=== PATIENT | male | born 1985 | race Caucasian/White ===

== ENCOUNTER 2020-02-15 15:15 | Inpatient (IN) | payer OTHER ==
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
--- NOTE | 2020-02-15 16:58 | HP ---
CIWA Score Nausea/Vomitin Muscle Tremors: 3 Anxiety: 3 Agitation: 2 Paroxysmal Sweats: No Perspiration Orientation: 0-Oriented Tacttile Disturbances: 0-None Auditory Disturbances: 1-Very Mild Visual Disturbances: 1-Very Mild Sensitivity Headache: 1-Very Mild CIWA-Ar Total Score: 13 - Admission Criteria OASAS Guidelines: Admission for Medically Managed Detox: Requires at least one of the followin. CIWA greater than 12 2. Seizures within the past 24 hours 3. Delirium tremens within the past 24 hours 4. Hallucinations within the past 24 hours 5. Acute intervention needed for co occurring medical disorder 6. Acute intervention needed for co occurring psychiatric disorder 7. Severe withdrawal that cannot be handled at a lower level of care (continued vomiting, continued diarrhea, abnormal vital signs) requiring intravenous medication and/or fluids 8. Patient presents the following: CIWA greater than 12 Admission Criteria Met: Admission criteria met Admitting History and Physical - Smoking History Smoking history: Current every day smoker Have you smoked in the past 12 months: Yes Aproximately how many cigarettes per day: 20 - Alcohol/Substance Use Hx Alcohol Use: Yes Admission ROS BHS - HPI Chief Complaint: detox from alcohol and benzo. Is in a methadone program 130mg/day Allergies/Adverse Reactions: Allergies Allergy/AdvReac Type Severity Reaction Status Date / Time No Known Allergies Allergy Verified 03/29/15 14:17 History of Present Illness: 34 yo started using percocets and xanax at age 14. Has been in a methadone program for the last 8 months, but still injecting heroin occ, also injecting cocaine (speedball), wants to stop. HCV pos- has not had treatment diagnosed with anxiety Does not have a PCP [facility]- MTD, BZO - Substance Use History Alcohol Substance amount: one pint Vodka Frequency of use: Daily Substance route: Oral Date of Last Use: 02/12/20 Heroin Substance amount: 2-3 bags Frequency of use: Less than 3 times per week Substance route: Injection (ex: intravenous or skin popping) Date of Last Use: 02/11/20 Cocaine- Powder Substance amount: $100 Frequency of use: Less than 3 times per week Substance route: Injection (ex: intravenous or skin popping) Date of Last Use: 02/11/20 Xanax Substance amount: Klonopin or Xanax 4-6 mg Frequency of use: Daily Substance route: Oral Date of Last Use: 02/12/20 Exam Limitations: No Limitations - Ebola screening Have you traveled outside of the country in the last 21 days: No Have you had contact with anyone from an Ebola affected area: No Have you been sick,other than usual withdrawal symptoms: No Do you have a fever: No - Review of Systems Constitutional: No Symptoms Reported EENT: reports: No Symptoms Reported Respiratory: reports: No Symptoms reported Cardiac: reports: No Symptoms Reported GI: reports: No Symptoms Reported : reports: No Symptoms Reported Musculoskeletal: reports: No Symptoms Reported Integumentary: reports: No Symptoms Reported Neuro: reports: Headache (almost daily headaches- using klonopin which helps with h/a) Endocrine: reports: No Symptoms Reported Hematology: reports: No Symptoms Reported Psychiatric: reports: other Patient History - Patient Medical History Hx Anemia: No Hx Asthma: Yes (albuterol) Hx Chronic Obstructive Pulmonary Disease (COPD): No Hx Cancer: No Hx Cardiac Disorders: No Hx Congestive Heart Failure: No Hx Hypertension: No Hx Hypercholesterolemia: No Hx Pacemaker: No HX Cerebrovascular Accident: No Hx Seizures: No Hx Dementia: No Hx Diabetes: No Hx Gastrointestinal Disorders: Yes (GERD) Hx Liver Disease: No Hx Genitourinary Disorders: No Hx Sexually Transmitted Disorders: No Hx Renal Disease (ESRD): No Hx Thyroid Disease: No Hx Human Immunodeficiency Virus (HIV): No (negative) Hx Hepatitis C: No Hx Depression: Yes Hx Suicide Attempt: No (denies) Hx Bipolar Disorder: No Hx Schizophrenia: No - Patient Surgical History Past Surgical History: Yes Hx Neurologic Surgery: No Hx Cataract Extraction: No Hx Cardiac Surgery: No Hx Lung Surgery: No Hx Breast Surgery: No Hx Breast Biopsy: No Hx Abdominal Surgery: No Hx Appendectomy: No Hx Cholecystectomy: No Hx Genitourinary Surgery: No Hx Section: No Hx Orthopedic Surgery: No Other Surgical History: tonsillectomy Anesthesia Reaction: No - PPD History Date: 03/31/15 Results: 0 mm - Smoking Cessation Smoking history: Current every day smoker Have you smoked in the past 12 months: Yes Aproximately how many cigarettes per day: 20 Cigars Per Day: 20 Hx Chewing Tobacco Use: No Initiated information on smoking cessation: Yes 'Breaking Loose' booklet given: 02/15/20 Admission Physical Exam BHS - Physical General Appearance: Yes: Within Normal Limits HEENTM: Yes: Within Normal Limits, Hearing grossly Normal Respiratory: Yes: Within Normal Limits, Chest Non-Tender, Lungs Clear Neck: Yes: Within Normal Limits Cardiology: Yes: Within Normal Limits, Regular Rhythm, Regular Rate Abdominal: Yes: Within Normal Limits Back: Yes: Within Normal Limits Musculoskeletal: Yes: Within Normal Limits Extremities: Yes: Within Normal Limits, Normal Inspection, Other Neurological: Yes: Within Normal Limits, physical therapist II-XII NML intact Integumentary: Yes: Within Normal Limits Lymphatic: Yes: Within Normal Limits - Diagnostic (1) Opioid dependence on agonist therapy Current Visit: Yes Status: Acute (2) Cocaine use disorder Current Visit: Yes Status: Acute (3) Benzodiazepine dependence Current Visit: No Status: Acute (4) Drug-induced mood disorder Current Visit: No Status: Chronic (5) Hepatitis C Current Visit: No Status: Chronic Qualifiers: Viral hepatitis chronicity: chronic Hepatic coma status: without hepatic coma Qualified Code(s): B18.2 - Chronic viral hepatitis C (6) Opioid dependence Current Visit: No Status: Chronic (7) Alcohol dependence with uncomplicated withdrawal Current Visit: No Status: Acute Inpatient Rehab Admission - Rehab Decision to Admit Inpatient rehab admission?: No
[2020-02-15] MEDS ORDERED: MAG HYDROX/AL HYDROX/SIMETH 30 ML UNIT-DOSE CUP PO PRN (17:09)
[2020-02-15] MEDS ORDERED: BISMUTH SUBSALICYLATE 524 MG/30 ML UD PO PRN (17:09)
[2020-02-15] MEDS ORDERED: MAGNESIUM HYDROX 2400MG/30ML ORAL SUSPENSION 30 ML CUP PO PRN (17:09)
[2020-02-15] MEDS ORDERED: NICOTINE POLACRILEX 4 MG GUM BUC PRN (17:09)
[2020-02-15] MEDS ORDERED: MENTHOL/PHENOL 1 EACH UD MM PRN (17:09)
[2020-02-15] MEDS ORDERED: ACETAMINOPHEN 325 MG TABLET (FP) PO PRN (17:09)
[2020-02-15] MEDS ORDERED: ONDANSETRON *ODT* 4 MG TABLET SL PRN (17:09)
[2020-02-15] MEDS ORDERED: MAGNESIUM CITRATE 300 ML BOTTLE PO PRN (17:09)
[2020-02-15] MEDS: chlordiazePOXIDE HCL 25 MG CAPSULE PO PRN (18:46)
[2020-02-15] MEDS: hydrOXYzine PAMOATE 25 MG CAPSULE (FP) PO SCH ×2 (18:46→22:11)
[2020-02-15] MEDS: NICOTINE POLACRILEX 2 MG GUM BUC PRN (18:49)
[2020-02-15] MEDS: chlordiazePOXIDE HCL 25 MG CAPSULE PO SCH (22:11)
[2020-02-15] MEDS: THIAMINE HCL 100 MG TABLET (FP) PO SCH (22:11)
[2020-02-15] MEDS: MELATONIN 5 MG TABLETS PO SCH (22:11)
[2020-02-15 22:20] VITALS: BMI 30.2
[2020-02-16] MEDS: hydrOXYzine PAMOATE 25 MG CAPSULE (FP) PO SCH ×5 (06:08→22:26)
[2020-02-16] MEDS: chlordiazePOXIDE HCL 25 MG CAPSULE PO SCH ×4 (06:08→22:25)
[2020-02-16] MEDS: cloNIDine HCL 0.1 MG TABLET PO PRN ×2 (08:00→19:43)
[2020-02-16] MEDS: chlordiazePOXIDE HCL 25 MG CAPSULE PO PRN ×3 (08:00→19:43)
[2020-02-16] MEDS: NICOTINE POLACRILEX 2 MG GUM BUC PRN ×5 (08:01→22:29)
[2020-02-16] MEDS ORDERED: METHADONE HCL 40 MG DISPERSABLE TABLET PO SCH (10:30)
[2020-02-16] MEDS ORDERED: METHADONE HCL 40 MG DISPERSABLE TABLET ONE (10:57)
[2020-02-16] MEDS ORDERED: METHADONE HCL 10 MG TABLET ONE (10:57)
[2020-02-16] MEDS: METHADONE 120 MG, METHADONE 10 MG PO SCH (11:02)
[2020-02-16] MEDS: NICOTINE 14 MG/24 HOURS TOPICAL PATCH TD SCH (11:02)
[2020-02-16] MEDS: PRENATAL VITAMINS W/ FOLIC ACID TABLET (FP) PO SCH (11:02)
--- NOTE | 2020-02-16 11:35 | PN ---
S CIWA - CIWA Score Nausea/Vomitin-No Nausea/No Vomiting Muscle Tremors: None Anxiety: 3 Agitation: 2 Paroxysmal Sweats: 3 Orientation: 0-Oriented Tacttile Disturbances: 0-None Auditory Disturbances: 0-None Visual Disturbances: 0-None Headache: 2-Mild CIWA-Ar Total Score: 10 BHS Progress Note (SOAP) Subjective: c/o anxiety, irritability, headache, and sweats. Objective: 02/16/20 11:33 Vital Signs 02/16/20 02/16/20 06:27 08:57 Temperature 97.3 F L 97.1 F L Pulse Rate 77 82 Respiratory 18 18 Rate Blood Pressure 106/67 102/76 O2 Sat by Pulse 98 Oximetry (%) Labs pending. Assessment: 02/16/20 11:34 AOX3, in no acute respiratory distress. Full ROM, ambulating in the unit. Withdrawal symptoms. Plan: continue detox.
[2020-02-16 11:51] LABS: HEMATOCRIT 37.9 % (35.4-49); HEMOGLOBIN 12.6 GM/dL (11.7-16.9); MCH 28.4 pg (25.7-33.7); MCHC 33.4 g/dl (32.0-35.9); MEAN CELL VOLUME 85.3 fl (80-96); PLATELET COUNT 267 K/MM3 (134-434); RBC 4.45 M/mm3 (4.00-5.60); RDW 16.1 % (11.9-15.9); WHITE BLOOD COUNT 7.6 K/mm3 (4.0-10.0)
[2020-02-16] MEDS ORDERED: PNEUMOC 13-VAL CONJ-DIP CRM/PF 0.5 ML DISP.SYRIN IM ONE (12:00)
[2020-02-16] MEDS ORDERED: PNEUMOCOCCAL 23 VACCINE 0.5 ML VIAL IM ONE (12:00)
[2020-02-16 12:01] LABS: ALBUMIN 3.6 g/dl (3.4-5.0); BILIRUBIN,TOTAL 0.2 mg/dL (0.2-1); BLOOD UREA NITROGEN 18.9 mg/dL (7-18); CALCIUM 8.9 mg/dL (8.5-10.1); CREATININE 0.7 mg/dL (0.55-1.3); POTASSIUM 4.5 mmol/L (3.5-5.1); TOT PROT 7.6 g/dl (6.4-8.2)
--- NOTE | 2020-02-16 13:23 | CONSULT ---
[facility] Psychiatric Consult - Data Date of interview: 02/16/20 Admission source: [facility] Identifying data: Revisit to [facility] (since 2014) and admission to [address] [place] [address] for this 34 y/o male self-referred for detoxification treatment. YARITZA issues (as per self-report) : benzodiazepine (xanax), heroin, cocaine, alcohol, nicotine. Patient is single, father of one, homeless, unemployed and supported on food stamps. Substance Abuse History: Discussed with the patient. YARITZA profile as follows : Smoking Cessation. Smoking history: Current every day smoker. Have you smoked in the past 12 months: Yes. Approximately how many cigarettes per day: 20. Cigars Per Day: 20. Hx Chewing Tobacco Use: No. Initiated information on smoking cessation: Yes. 'Breaking Loose' booklet given: 02/15/20. Alcohol. Substance amount: one pint Vodka. Frequency of use: Daily. Substance route: Oral. Date of Last Use: 02/12/20. Heroin. Substance amount: 2-3 bags. Frequency of use: Less than 3 times per week. Substance route: Injection (ex: intravenous or skin popping). Date of Last Use: 02/11/20. Cocaine- Powder. Substance amount: $100. Frequency of use: Less than 3 times per week. Substance route: Injection (ex: intravenous or skin popping). Date of Last Use: 02/11/20. Xanax. Substance amount: Klonopin or Xanax 4-6 mg. Frequency of use: Daily. Substance route: Oral. Date of Last Use: 02/12/20. History of multiple YARITZA treatment failures. Medical History: Medical profile is remarkable for hepatitis C, bronchial asthma, GERD and distant history of tonsillectomy. No known allergies. Psychiatric History: Patient admits to a history of multiple psychiatric hospitalizations. Age of onset of emotional disturbances : mid 20's. Claims past psychiatric admissions to [facility], [facility] in [place] and [facility]. Patient remains a vague, distracted and questionable historian. Mr Kay endorses the diagnoses of MDD and Anxiety Disorder. He is currently on methadone maintenance (130 mg/day). Last took psychotropic medications (seroquel + gabapentin + buspar + lexapro) about 4-5 weeks ago during his stay at [facility] (self-report). Patient is known for past affiliation with the [facility] OPD clinic (dropped out). Denies history of suicide attempts. Physical/Sexual Abuse/Trauma History: Not discussed. Patient declines. Additional Comment: History of non-adherence to psychiatric OPD care. Mental Status Exam - Mental Status Exam Alert and Oriented to: Time, Place, Person Cognitive Function: Good Patient Appearance: Unkempt, Disheveled Mood: Withdrawn Affect: Constricted Patient Behavior: Fatigued, Cooperative (marginally cooperative) Speech Pattern: Clear Voice Loudness: Normal Thought Process: Goal Oriented Thought Disorder: Not Present Hallucinations: Denies Suicidal Ideation: Denies Homicidal Ideation: Denies Insight/Judgement: Poor Sleep: Fair Appetite: Good Gait/Station: Normal Psychiatric Findings - Problem List ([place] 1, 2,3) (1) Alcohol dependence with uncomplicated withdrawal Current Visit: Yes Status: Acute (2) Cocaine use disorder Current Visit: Yes Status: Chronic (3) Opioid dependence on agonist therapy Current Visit: Yes Status: Chronic (4) Benzodiazepine dependence Current Visit: Yes Status: Chronic (5) Nicotine dependence Current Visit: Yes Status: Chronic Qualifiers: Nicotine product type: cigarettes Substance use status: uncomplicated Qualified Code(s): F17.210 - Nicotine dependence, cigarettes, uncomplicated (6) Drug-induced mood disorder Current Visit: Yes Status: Chronic (7) History of depression Current Visit: Yes Status: Chronic (8) Non-compliance Current Visit: Yes Status: Chronic - Initial Treatment Plan Initial Treatment Plan: Records ([facility]) revisited. Psychoeducation. Detoxification in progress. Support. Sleep hygiene. Patient is requesting resumption of medications previously prescribed to him while at [facility] we eks ago. Not able to verify. In the meantime, will resume seroquel at the dose of 100 mg po hs (in view of this patient's moderately sedated state + enduring non-adherence to medications, will not acquiesce to his request for seroquel 200/bid + lexapro 20 mg/day + gabapentin 600 mg/bid + buspar 15 mg/bid). Intervention is explained to the patient. Side effects/benefits of these medications discussed in this session. Patient consents (verbally) to this plan of care. Monitor for falls. Observation.
--- NOTE | 2020-02-16 16:15 | EKG ---
Test Reason : Blood Pressure : / mmHG Vent. Rate : 069 BPM Atrial Rate : 069 BPM P-R Int : 138 ms QRS Dur : 102 ms QT Int : 434 ms P-R-T Axes : 049 000 016 degrees QTc Int : 465 ms NORMAL SINUS RHYTHM NORMAL ECG NO PREVIOUS ECGS AVAILABLE Confirmed by MD Jerry Daniel ([id number]) on 02/16/2020 4:14:23 PM Referred By: Confirmed By:Justin Jerry MD
[2020-02-16] MEDS: THIAMINE HCL 100 MG TABLET (FP) PO SCH (22:26)
[2020-02-16] MEDS: MELATONIN 5 MG TABLETS PO SCH (22:26)
[2020-02-16] MEDS: QUEtiapine FUMARATE 100 MG TABLET (FP) PO SCH (22:26)
[2020-02-17] MEDS: chlordiazePOXIDE HCL 25 MG CAPSULE PO PRN ×3 (00:48→20:56)
[2020-02-17] MEDS ORDERED: METHADONE HCL 10 MG TABLET ONE (05:03)
[2020-02-17] MEDS ORDERED: METHADONE HCL 40 MG DISPERSABLE TABLET ONE (05:03)
[2020-02-17] MEDS: METHADONE 120 MG, METHADONE 10 MG PO SCH (06:28)
[2020-02-17] MEDS: chlordiazePOXIDE HCL 25 MG CAPSULE PO SCH ×4 (06:28→22:09)
[2020-02-17] MEDS: hydrOXYzine PAMOATE 25 MG CAPSULE (FP) PO SCH ×5 (06:28→22:09)
[2020-02-17] MEDS: NICOTINE POLACRILEX 2 MG GUM BUC PRN ×4 (06:32→20:59)
[2020-02-17] MEDS: IBUPROFEN 400 MG TABLET (FP) PO PRN ×2 (07:14→20:56)
[2020-02-17] MEDS: METHOCARBAMOL 500 MG TABLET PO PRN ×2 (10:16→15:28)
[2020-02-17] MEDS: PRENATAL VITAMINS W/ FOLIC ACID TABLET (FP) PO SCH (10:16)
[2020-02-17] MEDS: NICOTINE 14 MG/24 HOURS TOPICAL PATCH TD SCH (10:17)
[2020-02-17] MEDS: cloNIDine HCL 0.1 MG TABLET PO PRN ×2 (10:20→20:58)
--- NOTE | 2020-02-17 13:19 | PN ---
S CIWA - CIWA Score Nausea/Vomitin-Mild Nausea/No Vomiting Muscle Tremors: 2 Anxiety: 2 Agitation: 0-Normal Activity Paroxysmal Sweats: No Perspiration Orientation: 0-Oriented Tacttile Disturbances: 0-None Auditory Disturbances: 0-None Visual Disturbances: 2-Mild Sensitivity Headache: 2-Mild CIWA-Ar Total Score: 9 BHS Progress Note (SOAP) Subjective: 34 years old male was admitted on 02/15/20 for alcohol and benzo withdrawal sx management treating with librium detox regiment mr gonsales requests ensure due to recent weight loss discuss bmi and proper range of bmi mr schmid insists to have ensure frequent requesting ensure ensure 60ml po od for satisfaction requests to be seen by a psychiatrist that neurontin and buspar he should get increase vistaril to 50 mg po mr gonsales received methadone 130mg po today Objective: 02/17/20 13:20 Vital Signs - 24 hr 02/16/20 02/16/20 02/17/20 16:21 20:20 07:12 Temperature 97.3 F L 97.3 F L 97.2 F L Pulse Rate 74 73 104 H Respiratory 18 18 18 Rate Blood Pressure 98/66 114/76 99/72 O2 Sat by Pulse 99 96 Oximetry (%) 02/17/20 08:58 Temperature 97.5 F L Pulse Rate 71 Respiratory 18 Rate Blood Pressure 118/78 O2 Sat by Pulse Oximetry (%) Laboratory Tests 02/15/20 02/16/20 02/16/20 18:15 07:50 07:50 WBC 7.6 RBC 4.45 Hgb 12.6 Hct 37.9 MCV 85.3 MCH 28.4 MCHC 33.4 RDW 16.1 H Plt Count 267 MPV 9.0 Sodium Potassium Chloride Carbon Dioxide Anion Gap BUN Creatinine Est GFR (CKD-EPI)AfAm Est GFR (CKD-EPI)NonAf Random Glucose Calcium Total Bilirubin AST ALT Alkaline Phosphatase Total Protein Albumin Syphilis Serology Non-reactive COVID-19 (JOHN) Not detected 02/16/20 07:50 WBC RBC Hgb Hct MCV MCH MCHC RDW Plt Count MPV Sodium 140 Potassium 4.5 Chloride 105 Carbon Dioxide 32 Anion Gap 4 L BUN 18.9 H Creatinine 0.7 Est GFR (CKD-EPI)AfAm 140.71 Est GFR (CKD-EPI)NonAf 121.41 Random Glucose 85 Calcium 8.9 Total Bilirubin 0.2 AST 30 ALT 70 H Alkaline Phosphatase 93 Total Protein 7.6 Albumin 3.6 Syphilis Serology COVID-19 (JOHN) lab noted Assessment: 02/17/20 13:21 alcohol and benzo withdrawal Plan: librium regiment
[2020-02-17] MEDS: ACETAMINOPHEN 325 MG TABLET (FP) PO PRN (15:28)
[2020-02-17] MEDS: THIAMINE HCL 100 MG TABLET (FP) PO SCH (22:08)
[2020-02-17] MEDS: MELATONIN 5 MG TABLETS PO SCH (22:09)
[2020-02-17] MEDS: QUEtiapine FUMARATE 100 MG TABLET (FP) PO SCH (22:09)
[2020-02-18] MEDS ORDERED: METHADONE HCL 10 MG TABLET ONE (04:39)
[2020-02-18] MEDS ORDERED: METHADONE HCL 40 MG DISPERSABLE TABLET ONE (04:39)
[2020-02-18] MEDS: chlordiazePOXIDE HCL 10 MG CAPSULE PO SCH ×4 (06:28→22:27)
[2020-02-18] MEDS: METHADONE 120 MG, METHADONE 10 MG PO SCH (06:28)
[2020-02-18] MEDS: hydrOXYzine PAMOATE 25 MG CAPSULE (FP) PO SCH ×6 (06:29→22:27)
[2020-02-18] MEDS: IBUPROFEN 400 MG TABLET (FP) PO PRN ×2 (06:33→12:40)
[2020-02-18] MEDS: NICOTINE POLACRILEX 2 MG GUM BUC PRN ×5 (08:55→22:30)
[2020-02-18] MEDS: ACETAMINOPHEN 325 MG TABLET (FP) PO PRN ×2 (08:57→17:04)
[2020-02-18] MEDS: NICOTINE 14 MG/24 HOURS TOPICAL PATCH TD SCH (10:31)
[2020-02-18] MEDS: PRENATAL VITAMINS W/ FOLIC ACID TABLET (FP) PO SCH (10:31)
--- NOTE | 2020-02-18 12:22 | PN ---
S CIWA - CIWA Score Nausea/Vomitin-Mild Nausea/No Vomiting Muscle Tremors: 1-None Visible, but [place] Anxiety: 1-Mildly Anxious Agitation: 1-Slight > Activity Paroxysmal Sweats: No Perspiration Orientation: 0-Oriented Tacttile Disturbances: 0-None Auditory Disturbances: 0-None Visual Disturbances: 1-Very Mild Sensitivity Headache: 1-Very Mild CIWA-Ar Total Score: 6 BHS Progress Note (SOAP) Subjective: 34 years old male was admitted on 02/15/20 for alcohol and benzo withdrawal sx management treating with librium detox regiment feels ok today less tremor mild anxiety mr gonsales prefers to go to [facility] for alcohol and benzo abuse treatment Objective: 02/18/20 12:23 Vital Signs - 24 hr 02/17/20 02/17/20 02/17/20 12:32 16:36 20:27 Temperature 97.3 F L 97.3 F L 97.2 F L Pulse Rate 76 71 98 H Respiratory 18 17 18 Rate Blood Pressure 117/75 119/76 113/78 O2 Sat by Pulse 99 100 Oximetry (%) 02/18/20 02/18/20 06:16 09:02 Temperature 97.9 F 97.4 F L Pulse Rate 81 82 Respiratory 16 19 Rate Blood Pressure 119/77 105/70 O2 Sat by Pulse 98 98 Oximetry (%) Laboratory Tests 02/15/20 02/16/20 02/16/20 18:15 07:50 07:50 WBC 7.6 RBC 4.45 Hgb 12.6 Hct 37.9 MCV 85.3 MCH 28.4 MCHC 33.4 RDW 16.1 H Plt Count 267 MPV 9.0 Sodium Potassium Chloride Carbon Dioxide Anion Gap BUN Creatinine Est GFR (CKD-EPI)AfAm Est GFR (CKD-EPI)NonAf Random Glucose Calcium Total Bilirubin AST ALT Alkaline Phosphatase Total Protein Albumin Syphilis Serology Non-reactive COVID-19 (JOHN) Not detected 02/16/20 07:50 WBC RBC Hgb Hct MCV MCH MCHC RDW Plt Count MPV Sodium 140 Potassium 4.5 Chloride 105 Carbon Dioxide 32 Anion Gap 4 L BUN 18.9 H Creatinine 0.7 Est GFR (CKD-EPI)AfAm 140.71 Est GFR (CKD-EPI)NonAf 121.41 Random Glucose 85 Calcium 8.9 Total Bilirubin 0.2 AST 30 ALT 70 H Alkaline Phosphatase 93 Total Protein 7.6 Albumin 3.6 Syphilis Serology COVID-19 (JOHN) lab noted Assessment: 02/18/20 12:24 alcohol and benzo withdrawal Plan: librium regiment
[2020-02-18] MEDS: chlordiazePOXIDE HCL 10 MG CAPSULE PO PRN ×2 (12:40→19:54)
--- NOTE | 2020-02-18 14:37 | PN ---
Psychiatric Progress Note Vital Signs: Vital Signs Period Temp Pulse Resp BP Sys/Landers Pulse Ox Last 24 Hr 97.2 F-98.4 F 71-98 16-19 105-119/67-78 98-100 Date of Session: 02/18/20 Chief Complaint:: " I want to get back on gabapentin. I need more seroquel as well." HPI: Psychiatric follow-up is requeted by the medical provider to in response to patient's request for augmentation of his medications (increase of seroquel dose + gabapentin). Patient is overly anxious, perseverative and medication-seeking. ROS: Unremarkable. Current Medications: Active Medications Generic Name Dose Route Start Last Admin Trade Name Freq PRN Reason Stop Dose Admin Acetaminophen 650 mg 02/15/20 17:09 02/18/20 08:57 Tylenol - PO 650 mg Q6H PRN Administration PAIN LEVEL 4 - 6 Acetaminophen 650 mg 02/15/20 17:09 Tylenol - PO Q6H PRN FEVER Al Hydroxide/Mg Hydroxide 30 ml 02/15/20 17:09 Mylanta Oral Suspension - PO Q6H PRN DYSPEPSIA Bismuth Subsalicylate 524 mg 02/15/20 17:09 Pepto-Bismol - PO Q1H PRN DIARRHEA Chlordiazepoxide HCl 10 mg 02/18/20 05:00 02/18/20 10:32 Librium - PO 02/18/20 23:01 10 mg [id number] BRAULIO Administration Chlordiazepoxide HCl 10 mg 02/19/20 05:00 Librium - PO 02/19/20 17:01 Q12H BRAULIO Chlordiazepoxide HCl 10 mg 02/18/20 00:00 02/18/20 12:40 Librium - PO 02/19/20 00:00 10 mg Q4H PRN Administration WITHDRAWAL(CONT SUBST) Chlordiazepoxide HCl 10 mg 02/20/20 05:00 Librium - PO 02/20/20 05:01 ONCE@0500 ONE Clonidine 0.1 mg 02/15/20 17:17 02/17/20 20:58 Catapres - PO 0.1 mg Q4H PRN Administration ANXIETY Eucalyptus/Menthol/Phenol/Sorbitol 1 each 02/15/20 17:09 Cepastat Lozenge - MM 02/21/20 17:09 Q4H PRN SORE THROAT Gabapentin 200 mg 02/18/20 22:00 Neurontin - PO TID BRAULIO Hydroxyzine Pamoate 50 mg 02/17/20 13:19 02/18/20 13:51 Vistaril - PO 02/21/20 17:09 Not Given Q4HWA BRAULIO Ibuprofen 400 mg 02/15/20 17:09 02/18/20 12:40 Motrin - PO 400 mg Q6H PRN Administration PAIN LEVEL 1 - 3 Magnesium Citrate 300 ml 02/15/20 17:09 Citroma - PO Q48H PRN CONSTIPATION Magnesium Hydroxide 30 ml 02/15/20 17:09 Milk Of Magnesia - PO PRN PRN CONSTIPATION Melatonin 5 mg 02/15/20 22:00 02/17/20 22:09 Melatonin PO 5 mg HS BRAULIO Administration Methadone HCl 120 mg/ 130 mg 02/16/20 11:00 02/18/20 06:28 Methadone HCl 10 mg PO 130 mg DAILY@0600 BRAULIO Administration Methocarbamol 500 mg 02/15/20 17:09 02/17/20 15:28 Robaxin - PO 02/21/20 17:09 500 mg Q6H PRN Administration MUSCLE SPASMS Nicotine 14 mg 02/16/20 10:00 02/18/20 10:31 Nicoderm Patch - TD 14 mg DAILY BRAULIO Administration Nicotine Polacrilex 2 mg 02/15/20 17:09 02/18/20 12:42 Nicorette Gum - BUC 2 mg Q2H PRN Administration NICOTINE REPLACEMENT RX Ondansetron HCl 4 mg 02/15/20 17:09 Zofran Odt - SL Q8H PRN Nausea/Vomiting Multivit/Folic Acid/Iron 1 tab 02/16/20 10:00 02/18/20 10:31 Vitamins (Sjr) - PO 1 tab DAILY BRAULIO Administration Quetiapine Fumarate 200 mg 02/18/20 22:00 Seroquel - PO HS BRAULIO Thiamine HCl 100 mg 02/15/20 22:00 02/17/20 22:08 Vitamin B1 - PO 100 mg HS BRAULIO Administration Medication(s) Change(s): No pharmacy on the record. Patient is unable to provide accurate information about he gets his medications i the community. " I don't go to pharmacies; I get them from emergency rooms. 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 In the meantime, records ([facility]) are again reviewed. Patient has been medicated with seroquel + gabapentin in the past at [facility]. Action : seroquel is raised to 200 mg po hs and gabapentin is started (200 mg po tid). Side effects/benefits of these drugs are discussed with the patient. Mr Kay is in agreement with this plan of care. Consent (verbal) granted to MD. Current Side Effect: No Lab tests ordered: No Lab tests reviewed: Yes Provider note:: Chart reviewed. Met with the patient. Patient came to consultation office to request more medications. Feels anxious. Reassurance provided by aligner typewriter. Medications ordered (see Medications Change section for details). Mr Kay denies hallucinations, delusions or thoughts of harming self/others. Mental status remains stable. Total face to face time:: 25 Mental Status Exam - Mental Status Exam Alert and Oriented to: Time, Place, Person Cognitive Function: Good Patient Appearance: Well Groomed Mood: Anxious, Apprehensive Affect: Mood Congruent, Labile Patient Behavior: Cooperative Speech Pattern: Clear, Perseverating Voice Loudness: Normal Thought Process: Goal Oriented Thought Disorder: Not Present Hallucinations: Denies Suicidal Ideation: Denies Homicidal Ideation: Denies Insight/Judgement: Poor Sleep: Poorly, Difficulty falling asleep Appetite: Good Gait/Station: Normal Psychiatric Treatment Plan - Problem List (1) Alcohol dependence with uncomplicated withdrawal Current Visit: Yes Comment: . (2) Cocaine use disorder Current Visit: Yes Comment: . (3) Opioid dependence on agonist therapy Current Visit: Yes Comment: . (4) Benzodiazepine dependence Current Visit: Yes Comment: . (5) Nicotine dependence Current Visit: Yes Qualifiers: Nicotine product type: cigarettes Substance use status: uncomplicated Qualified Code(s): F17.210 - Nicotine dependence, cigarettes, uncomplicated Comment: . (6) Drug-induced mood disorder Current Visit: Yes Comment: . (7) History of depression Current Visit: Yes Comment: .
[2020-02-18] MEDS ORDERED: GABAPENTIN 100 MG CAPSULE PO ONE (15:53)
[2020-02-18] MEDS: cloNIDine HCL 0.1 MG TABLET PO PRN (19:55)
[2020-02-18] MEDS: MELATONIN 5 MG TABLETS PO SCH (22:27)
[2020-02-18] MEDS: QUEtiapine FUMARATE 200 MG TABLET PO SCH (22:27)
[2020-02-18] MEDS: GABAPENTIN 100 MG CAPSULE PO SCH (22:27)
[2020-02-18] MEDS: THIAMINE HCL 100 MG TABLET (FP) PO SCH (22:27)
[2020-02-19] MEDS ORDERED: METHADONE HCL 10 MG TABLET ONE (03:17)
[2020-02-19] MEDS ORDERED: METHADONE HCL 40 MG DISPERSABLE TABLET ONE (03:17)
[2020-02-19] MEDS: chlordiazePOXIDE HCL 10 MG CAPSULE PO SCH ×2 (05:59→18:02)
[2020-02-19] MEDS: GABAPENTIN 100 MG CAPSULE PO SCH ×3 (05:59→22:30)
[2020-02-19] MEDS: METHADONE 120 MG, METHADONE 10 MG PO SCH (05:59)
[2020-02-19] MEDS: ACETAMINOPHEN 325 MG TABLET (FP) PO PRN (06:01)
[2020-02-19] MEDS: hydrOXYzine PAMOATE 25 MG CAPSULE (FP) PO SCH ×5 (06:23→22:30)
[2020-02-19] MEDS: PRENATAL VITAMINS W/ FOLIC ACID TABLET (FP) PO SCH (09:18)
[2020-02-19] MEDS: NICOTINE 14 MG/24 HOURS TOPICAL PATCH TD SCH (09:19)
[2020-02-19] MEDS: IBUPROFEN 400 MG TABLET (FP) PO PRN (10:30)
[2020-02-19] MEDS: cloNIDine HCL 0.1 MG TABLET PO PRN ×3 (10:31→22:31)
[2020-02-19] MEDS: NICOTINE POLACRILEX 2 MG GUM BUC PRN ×3 (10:34→22:33)
--- NOTE | 2020-02-19 10:48 | PN ---
S CIWA - CIWA Score Nausea/Vomitin-No Nausea/No Vomiting Muscle Tremors: 2 Anxiety: 2 Agitation: 2 Paroxysmal Sweats: No Perspiration Orientation: 0-Oriented Tacttile Disturbances: 0-None Auditory Disturbances: 0-None Visual Disturbances: 0-None Headache: 1-Very Mild CIWA-Ar Total Score: 7 S Progress Note (SOAP) Subjective: alert,irritable,anxious,interrupted sleep,aching pain Objective: 02/19/20 16:16 Vital Signs Temperature 97.1 F L 02/19/20 12:50 Pulse Rate 82 02/19/20 12:50 Respiratory Rate 18 02/19/20 12:50 Blood Pressure 92/61 02/19/20 12:50 O2 Sat by Pulse Oximetry (%) 97 02/19/20 12:50 Assessment: 02/19/20 16:17 withdrawal symptom Plan: continue detox librium regimen,discharge in am
[2020-02-19] MEDS: QUEtiapine FUMARATE 200 MG TABLET PO SCH (22:30)
[2020-02-19] MEDS: THIAMINE HCL 100 MG TABLET (FP) PO SCH (22:30)
[2020-02-19] MEDS: MELATONIN 5 MG TABLETS PO SCH (22:30)
[2020-02-20] MEDS ORDERED: METHADONE HCL 10 MG TABLET ONE (04:53)
[2020-02-20] MEDS ORDERED: METHADONE HCL 40 MG DISPERSABLE TABLET ONE (04:54)
[2020-02-20] MEDS ORDERED: chlordiazePOXIDE HCL 10 MG CAPSULE PO ONE (05:00)
[2020-02-20] MEDS: METHADONE 120 MG, METHADONE 10 MG PO SCH (05:24)
[2020-02-20] MEDS: GABAPENTIN 100 MG CAPSULE PO SCH (05:25)
[2020-02-20] MEDS: hydrOXYzine PAMOATE 25 MG CAPSULE (FP) PO SCH ×2 (05:25→10:44)
[2020-02-20] MEDS: IBUPROFEN 400 MG TABLET (FP) PO PRN ×2 (05:26→10:45)
[2020-02-20] MEDS: cloNIDine HCL 0.1 MG TABLET PO PRN (05:30)
--- NOTE | 2020-02-20 08:50 | DS ---
[facility] Detox Discharge Summary Admission Date: 02/15/20 Discharge Date: 02/20/20 - History Present History: Alcohol Dependence, Cocaine Dependence, Sedative Dependence, MMTP Pertinent Past History: alert,oriented x3 ambulation on the unit lung clear on auscultation bilaterally abdomen soft,no pain,no tenderness detox completed,no withdrawal symptom stable for discharge today follow up with after care program [facility] as arrangement total time spending on discharge 35 minutes - Physical Exam Results Vital Signs: Vital Signs Temperature 98.2 F 02/20/20 06:30 Pulse Rate 85 02/20/20 06:30 Respiratory Rate 18 02/20/20 06:30 Blood Pressure 106/72 02/20/20 06:30 O2 Sat by Pulse Oximetry (%) 97 02/20/20 06:30 Pertinent Admission Physical Exam Findings: withdrawal signs and symptom Vital Signs Temperature 97.2 F L 02/20/20 08:53 Pulse Rate 88 02/20/20 08:53 Respiratory Rate 20 02/20/20 08:53 Blood Pressure 111/76 02/20/20 08:53 O2 Sat by Pulse Oximetry (%) 97 02/20/20 08:53 Laboratory Last Values WBC 7.6 K/mm3 (4.0-10.0) 02/16/20 07:50 RBC 4.45 M/mm3 (4.00-5.60) 02/16/20 07:50 Hgb 12.6 GM/dL (11.7-16.9) 02/16/20 07:50 Hct 37.9 % (35.4-49) 02/16/20 07:50 MCV 85.3 fl (80-96) 02/16/20 07:50 MCH 28.4 pg (25.7-33.7) 02/16/20 07:50 MCHC 33.4 g/dl (32.0-35.9) 02/16/20 07:50 RDW 16.1 % (11.9-15.9) H 02/16/20 07:50 Plt Count 267 K/MM3 (134-434) 02/16/20 07:50 MPV 9.0 fl (7.5-11.1) 02/16/20 07:50 Sodium 140 mmol/L (136-145) 02/16/20 07:50 Potassium 4.5 mmol/L (3.5-5.1) 02/16/20 07:50 Chloride 105 mmol/L (98-107) 02/16/20 07:50 Carbon Dioxide 32 mmol/L (21-32) 02/16/20 07:50 Anion Gap 4 MMOL/L (8-16) L 02/16/20 07:50 BUN 18.9 mg/dL (7-18) H 02/16/20 07:50 Creatinine 0.7 mg/dL (0.55-1.3) 02/16/20 07:50 Est GFR (CKD-EPI)AfAm 140.71 02/16/20 07:50 Est GFR (CKD-EPI)NonAf 121.41 02/16/20 07:50 Random Glucose 85 mg/dL (74-106) 02/16/20 07:50 Calcium 8.9 mg/dL (8.5-10.1) 02/16/20 07:50 Total Bilirubin 0.2 mg/dL (0.2-1) 02/16/20 07:50 AST 30 U/L (15-37) 02/16/20 07:50 ALT 70 U/L (13-61) H 02/16/20 07:50 Alkaline Phosphatase 93 U/L (45-117) 02/16/20 07:50 Total Protein 7.6 g/dl (6.4-8.2) 02/16/20 07:50 Albumin 3.6 g/dl (3.4-5.0) 02/16/20 07:50 Syphilis Serology Non-reactive (NONREACTIVE) 02/16/20 07:50 COVID-19 (JOHN) Not detected (Not Detected) 02/15/20 18:15 HIV Ag/Ab Combo Qual Negative (NEGATIVE) 02/18/20 05:55 - Treatment Hospital Course: Detox Protocol Followed, Detoxed Safely, Responded well, Discharged Condition Good, Rehab Referral Accepted Patient has Accepted a Rehab Referral to: [facility] - Medication Discharge Medications: Ambulatory Orders Gabapentin [Neurontin -] 100 mg PO BID #60 capsule 03/22/14 Albuterol Sulfate Inhaler - [Ventolin HFA Inhaler -] 2 inh IH Q4H PRN #1 inh 03/26/14 Buspirone HCl [Buspar -] 15 mg PO BID #60 tablet 04/22/15 Quetiapine Fumarate [Seroquel -] 200 mg PO HS 03/29/15 Escitalopram Oxalate [Lexapro -] 20 mg PO DAILY 02/15/20 - Diagnosis (1) Alcohol dependence with uncomplicated withdrawal Status: Acute (2) Benzodiazepine dependence Status: Chronic (3) Cocaine use disorder Status: Chronic (4) Hepatitis C Status: Chronic Qualifiers: Viral hepatitis chronicity: chronic Hepatic coma status: without hepatic coma Qualified Code(s): B18.2 - Chronic viral hepatitis C (5) Nicotine dependence Status: Chronic Qualifiers: Nicotine product type: cigarettes Substance use status: uncomplicated Qualified Code(s): F17.210 - Nicotine dependence, cigarettes, uncomplicated (6) Opioid dependence on agonist therapy Status: Chronic - AMA Did Patient Leave Against Medical Advice: No
--- NOTE | 2020-02-20 08:50 | PN ---
[facility] CIWA - CIWA Score Nausea/Vomitin-No Nausea/No Vomiting Muscle Tremors: None Anxiety: 1-Mildly Anxious Agitation: 0-Normal Activity Paroxysmal Sweats: No Perspiration Orientation: 0-Oriented Tacttile Disturbances: 0-None Auditory Disturbances: 0-None Visual Disturbances: 0-None Headache: 0-None Present CIWA-Ar Total Score: 1 [facility] Progress Note (SOAP) Subjective: alert,no complaint Objective: 02/20/20 15:18 Vital Signs Temperature 97.2 F L 02/20/20 08:53 Pulse Rate 88 02/20/20 08:53 Respiratory Rate 20 02/20/20 08:53 Blood Pressure 111/76 02/20/20 08:53 O2 Sat by Pulse Oximetry (%) 97 02/20/20 08:53 Assessment: 02/20/20 15:18 detox completed,no withdrawal symptom Plan: follow up with after care program as arrangement [facility]
[2020-02-20 10:18] VITALS: BP 111/76; PULSE 88; TEMP 97.2
[2020-02-20] MEDS: NICOTINE 14 MG/24 HOURS TOPICAL PATCH TD SCH (10:43)
[2020-02-20] MEDS: PRENATAL VITAMINS W/ FOLIC ACID TABLET (FP) PO SCH (10:44)
== END 2020-02-20 11:58 | disposition other institution (70) | DRG 773 ==
LOC: YASAS 15:15 → Y3N 18:10
PROVIDERS: ADMIT Allergy & Immunology; ATTEND Allergy & Immunology
PROC: HZ2ZZZZ Detoxification Services for Substance Abuse Treatment (ICD-10-PCS; principal; 2020-02-15)
DX: F10.230 Alcohol dependence with withdrawal, uncomplicated (principal); F11.23 Opioid dependence with withdrawal; F14.20 Cocaine dependence, uncomplicated; F17.210 Nicotine dependence, cigarettes, uncomplicated; F19.24 Other psychoactive substance dependence with psychoactive substance-induced mood disorder; F32.9 Major depressive disorder, single episode, unspecified; B18.2 Chronic viral hepatitis C; K21.9 Gastro-esophageal reflux disease without esophagitis; Z91.19 Patient's noncompliance with other medical treatment and regimen; Z59.0 Homelessness
CPT/HCPCS: 36415; 80053; 85027; 86780; 87389; 93005; 93010; J0735; U0003

== ENCOUNTER 2020-02-20 12:03 | Inpatient (IN) | payer OTHER ==
[2020-02-20] MEDS ORDERED: MAGNESIUM HYDROX 2400MG/30ML ORAL SUSPENSION 30 ML CUP PO PRN (12:33)
[2020-02-20] MEDS ORDERED: LOPERAMIDE HCL 2 MG CAPSULE PO PRN (12:33)
[2020-02-20] MEDS ORDERED: guaiFENesin 200 MG/10 ML 10 ML UNIT-DOSE CUPS PO PRN (12:33)
[2020-02-20] MEDS ORDERED: MENTHOL/PHENOL 1 EACH UD MM PRN (12:33)
[2020-02-20] MEDS ORDERED: MAG HYDROX/AL HYDROX/SIMETH 30 ML UNIT-DOSE CUP PO PRN (12:33)
[2020-02-20] MEDS ORDERED: IBUPROFEN 400 MG TABLET (FP) PO PRN (12:33)
[2020-02-20] MEDS ORDERED: MAGNESIUM CITRATE 300 ML BOTTLE PO PRN (12:33)
[2020-02-20] MEDS ORDERED: P-EPHED 60MG/TRIPROLIDI 2.5MG TABLET PO PRN (12:33)
--- NOTE | 2020-02-20 12:41 | HP ---
[facility] Rehab Assess/Revision - Admission History Ad[facility] to Rehab from: [facility] Date of Admission to Rehab: 02/20/2020 - Findings Detox History & Physical reviewed: Yes Concur with findings: Yes Comments/Additional Findings: Physical. General Appearance: No apparent distress. HEENTM: Hearing grossly Normal. Respiratory: No respiratory distress, unlabored. Neck: Yes: supple. Cardiology: Regular Rhythm & Rate. Abdominal: +BS. Musculoskeletal: Gait steady, full ROM. Neurological: no cognitive deficits Inpatient Rehab Admission - Rehab Decision to Admit Inpatient rehab admission?: Yes - Initial Determination Are CD services needed?: Yes Free of communicable disease: Yes Not in need of hospitalization: Yes - Rehab Admission Criteria Previous failed treatment: Yes Poor recovery environment: Yes Comorbidities: Yes Lacks judgement: Yes Patient is meeting Inpatient Rehab admission criteria:: Yes
[2020-02-20] MEDS: GABAPENTIN 100 MG CAPSULE PO SCH ×2 (14:22→21:48)
[2020-02-20] MEDS: hydrOXYzine PAMOATE 25 MG CAPSULE (FP) PO PRN (14:22)
[2020-02-20] MEDS: QUEtiapine FUMARATE 200 MG TABLET PO SCH (21:48)
[2020-02-20] MEDS: THIAMINE HCL 100 MG TABLET (FP) PO SCH (21:48)
[2020-02-20] MEDS: MELATONIN 5 MG TABLETS PO SCH (21:50)
[2020-02-20] MEDS: NICOTINE POLACRILEX 2 MG GUM BUC PRN (21:51)
[2020-02-21] MEDS ORDERED: METHADONE HCL 40 MG DISPERSABLE TABLET ONE (05:34)
[2020-02-21] MEDS ORDERED: METHADONE HCL 10 MG TABLET ONE (05:34)
[2020-02-21] MEDS ORDERED: METHADONE HCL 10 MG TABLET PO SCH (06:00)
[2020-02-21] MEDS: METHADONE 120 MG, METHADONE 10 MG PO SCH (06:24)
[2020-02-21] MEDS: hydrOXYzine PAMOATE 25 MG CAPSULE (FP) PO PRN ×2 (06:25→14:44)
[2020-02-21] MEDS: GABAPENTIN 100 MG CAPSULE PO SCH ×3 (06:25→21:27)
[2020-02-21] MEDS: ACETAMINOPHEN 325 MG TABLET (FP) PO PRN (06:28)
[2020-02-21] MEDS: PRENATAL VITAMINS W/ FOLIC ACID TABLET (FP) PO SCH (10:27)
[2020-02-21] MEDS: NICOTINE 21 MG/24 HOURS TOPICAL PATCH TD SCH (10:27)
[2020-02-21] MEDS: FAMOTIDINE 20 MG TABLET PO SCH ×2 (10:28→21:27)
[2020-02-21] MEDS: BISMUTH SUBSALICYLATE 262 MG/15 ML BTL PO PRN (10:30)
[2020-02-21] MEDS: NICOTINE POLACRILEX 2 MG GUM BUC PRN ×4 (10:31→21:29)
[2020-02-21] MEDS: IBUPROFEN 600 MG TABLET (FP) PO PRN (16:45)
[2020-02-21] MEDS: hydrOXYzine PAMOATE 50 MG CAPSULE (FP) PO PRN (16:46)
[2020-02-21] MEDS: THIAMINE HCL 100 MG TABLET (FP) PO SCH (21:27)
[2020-02-21] MEDS: QUEtiapine FUMARATE 200 MG TABLET PO SCH (21:27)
[2020-02-21] MEDS: MELATONIN 5 MG TABLETS PO SCH (21:27)
[2020-02-22] MEDS ORDERED: METHADONE HCL 40 MG DISPERSABLE TABLET ONE (03:19)
[2020-02-22] MEDS ORDERED: METHADONE HCL 10 MG TABLET ONE (03:19)
[2020-02-22] MEDS: hydrOXYzine PAMOATE 50 MG CAPSULE (FP) PO PRN ×3 (06:21→13:25)
[2020-02-22] MEDS: METHADONE 120 MG, METHADONE 10 MG PO SCH (06:21)
[2020-02-22] MEDS: IBUPROFEN 600 MG TABLET (FP) PO PRN ×2 (06:21→11:45)
[2020-02-22] MEDS: GABAPENTIN 100 MG CAPSULE PO SCH (06:22)
[2020-02-22] MEDS: BISMUTH SUBSALICYLATE 262 MG/15 ML BTL PO PRN (06:22)
[2020-02-22] MEDS: NICOTINE POLACRILEX 2 MG GUM BUC PRN ×2 (06:25→10:18)
--- NOTE | 2020-02-22 10:04 | CONSULT ---
[facility] Psychiatric Consult - Data Date of interview: 02/22/20 Admission source: [facility] Identifying data: Patient is a 34 year old single male, father of one, unemployed, homeless, and is supported with food stamps. This is one of multiple admissions. Patient admitted to for benzodiazepine dependence. Substance Abuse History: Substance Use History. Alcohol. Substance amount: one pint Vodka. Frequency of use: Daily. Substance route: Oral. Date of Last Use: 02/12/20. Heroin. Substance amount: 2-3 bags. Frequency of use: Less than 3 times per week. Substance route: Injection (ex: intravenous or skin popping). Date of Last Use: 02/11/20. Cocaine- Powder. Substance amount: $100. Frequency of use: Less than 3 times per week. Substance route: Injection (ex: intravenous or skin popping). Date of Last Use: 02/11/20. Xanax. Substance amount: Klonopin or Xanax 4-6 mg. Frequency of use: Daily. Substance route: Oral. Date of Last Use: 02/12/20 Medical History: Medical profile is remarkable for hepatitis C, bronchial asthma, GERD and distant history of tonsillectomy Psychiatric History: Patient reports history of multiple psychiatric hospitalizations at the following facilities due to depression and anxiety: [facility], [facility] in [place] and [facility]. Mr Kay endorses the diagnoses of MDD and Anxiety Disorder. He is currently on methadone maintenance (130 mg/day). Stated to financial writer that he is prescribed lexapro 20mg daily+ Gabapentin 600mg TID + Buspar 15mg TID + Seroquel 200mg BID by the psychiatrist at [facility]. Patient unable to provide a pharmacy number to contact. Patient denies history history of suicide attempt. At present patient presents as moderately sedated and reports feeling anxious. Physical/Sexual Abuse/Trauma History: denies. Mental Status Exam - Mental Status Exam Alert and Oriented to: Time, Place, Person Cognitive Function: Good Patient Appearance: Well Groomed Mood: Withdrawn Affect: Mood Congruent Patient Behavior: Fatigued Speech Pattern: Appropriate Voice Loudness: Mildly Soft/Quiet Thought Process: Goal Oriented Thought Disorder: Not Present Hallucinations: Denies Suicidal Ideation: Denies Homicidal Ideation: Denies Insight/Judgement: Poor Sleep: Fair Appetite: Fair Muscle strength/Tone: Normal Gait/Station: Normal Psychiatric Findings - Problem List ([place] 1, 2,3) (1) Methadone maintenance therapy patient Current Visit: Yes Status: Acute (2) Alcohol dependence Current Visit: Yes Status: Chronic (3) Benzodiazepine dependence Current Visit: Yes Status: Chronic Comment: . (4) Cocaine use disorder Current Visit: Yes Status: Chronic Comment: . (5) History of depression Current Visit: Yes Status: Chronic Comment: . - Initial Treatment Plan Initial Treatment Plan: Psychoeducation provided. Rehab in progress. 1)Will continue Seroquel 200mg HS 2) Will d/c Gabapentin 200mg TID. 3). Will order Lexapro 20mg + Buspar 15mg BID + Gabapentin 300mg TID. Benefits and side effects discussed. Verbal consent given.
[2020-02-22] MEDS: FAMOTIDINE 20 MG TABLET PO SCH ×2 (10:16→21:11)
[2020-02-22] MEDS: NICOTINE 21 MG/24 HOURS TOPICAL PATCH TD SCH (10:16)
[2020-02-22] MEDS: PRENATAL VITAMINS W/ FOLIC ACID TABLET (FP) PO SCH (10:16)
[2020-02-22] MEDS: GABAPENTIN 300 MG CAPSULE PO SCH ×2 (13:26→21:11)
[2020-02-22] MEDS: MELATONIN 5 MG TABLETS PO SCH (21:11)
[2020-02-22] MEDS: QUEtiapine FUMARATE 200 MG TABLET PO SCH (21:11)
[2020-02-22] MEDS: THIAMINE HCL 100 MG TABLET (FP) PO SCH (21:11)
[2020-02-23] MEDS ORDERED: METHADONE HCL 40 MG DISPERSABLE TABLET ONE (03:28)
[2020-02-23] MEDS ORDERED: METHADONE HCL 10 MG TABLET ONE (03:28)
[2020-02-23] MEDS: hydrOXYzine PAMOATE 50 MG CAPSULE (FP) PO PRN (06:38)
[2020-02-23] MEDS: GABAPENTIN 300 MG CAPSULE PO SCH ×3 (06:38→21:04)
[2020-02-23] MEDS: IBUPROFEN 600 MG TABLET (FP) PO PRN ×2 (06:38→15:12)
[2020-02-23] MEDS: METHADONE 120 MG, METHADONE 10 MG PO SCH (06:38)
[2020-02-23] MEDS: NICOTINE POLACRILEX 2 MG GUM BUC PRN ×4 (06:40→21:05)
[2020-02-23] MEDS: ESCITALOPRAM OXALATE 20 MG TABLET PO SCH (09:15)
[2020-02-23] MEDS: FAMOTIDINE 20 MG TABLET PO SCH ×2 (09:15→21:05)
[2020-02-23] MEDS: NICOTINE 21 MG/24 HOURS TOPICAL PATCH TD SCH (09:15)
[2020-02-23] MEDS: PRENATAL VITAMINS W/ FOLIC ACID TABLET (FP) PO SCH (09:15)
[2020-02-23] MEDS: ACETAMINOPHEN 325 MG TABLET (FP) PO PRN (09:16)
[2020-02-23] MEDS: ALBUTEROL SO4 HFA INHALER IH PRN (09:20)
[2020-02-23] MEDS: BISMUTH SUBSALICYLATE 262 MG/15 ML BTL PO PRN (09:21)
[2020-02-23] MEDS: THIAMINE HCL 100 MG TABLET (FP) PO SCH (21:04)
[2020-02-23] MEDS: QUEtiapine FUMARATE 200 MG TABLET PO SCH (21:05)
[2020-02-23] MEDS: MELATONIN 5 MG TABLETS PO SCH (21:05)
[2020-02-24] MEDS ORDERED: METHADONE HCL 40 MG DISPERSABLE TABLET ONE (03:38)
[2020-02-24] MEDS ORDERED: METHADONE HCL 10 MG TABLET ONE (03:38)
[2020-02-24] MEDS: GABAPENTIN 300 MG CAPSULE PO SCH ×3 (06:08→22:15)
[2020-02-24] MEDS: hydrOXYzine PAMOATE 50 MG CAPSULE (FP) PO PRN (06:08)
[2020-02-24] MEDS: IBUPROFEN 600 MG TABLET (FP) PO PRN ×2 (06:08→09:30)
[2020-02-24] MEDS: METHADONE 120 MG, METHADONE 10 MG PO SCH (06:08)
[2020-02-24] MEDS: NICOTINE POLACRILEX 2 MG GUM BUC PRN ×4 (06:10→23:11)
[2020-02-24] MEDS: PRENATAL VITAMINS W/ FOLIC ACID TABLET (FP) PO SCH (09:29)
[2020-02-24] MEDS: ESCITALOPRAM OXALATE 20 MG TABLET PO SCH (09:29)
[2020-02-24] MEDS: NICOTINE 21 MG/24 HOURS TOPICAL PATCH TD SCH (09:29)
[2020-02-24] MEDS: FAMOTIDINE 20 MG TABLET PO SCH ×2 (09:29→22:15)
[2020-02-24] MEDS: MELATONIN 5 MG TABLETS PO SCH (22:15)
[2020-02-24] MEDS: THIAMINE HCL 100 MG TABLET (FP) PO SCH (22:15)
[2020-02-24] MEDS: QUEtiapine FUMARATE 200 MG TABLET PO SCH (22:15)
[2020-02-25] MEDS ORDERED: METHADONE HCL 40 MG DISPERSABLE TABLET ONE (03:16)
[2020-02-25] MEDS ORDERED: METHADONE HCL 10 MG TABLET ONE (03:16)
[2020-02-25] MEDS: METHADONE 120 MG, METHADONE 10 MG PO SCH (06:20)
[2020-02-25] MEDS: hydrOXYzine PAMOATE 50 MG CAPSULE (FP) PO PRN ×3 (06:20→14:32)
[2020-02-25] MEDS: IBUPROFEN 600 MG TABLET (FP) PO PRN ×2 (06:20→14:33)
[2020-02-25] MEDS: GABAPENTIN 300 MG CAPSULE PO SCH ×3 (06:20→21:09)
[2020-02-25] MEDS: PRENATAL VITAMINS W/ FOLIC ACID TABLET (FP) PO SCH (09:46)
[2020-02-25] MEDS: NICOTINE 21 MG/24 HOURS TOPICAL PATCH TD SCH (09:47)
[2020-02-25] MEDS: ALBUTEROL SO4 HFA INHALER IH PRN (09:47)
[2020-02-25] MEDS: FAMOTIDINE 20 MG TABLET PO SCH ×2 (09:47→21:10)
[2020-02-25] MEDS: ESCITALOPRAM OXALATE 20 MG TABLET PO SCH (09:47)
[2020-02-25] MEDS: NICOTINE POLACRILEX 2 MG GUM BUC PRN ×4 (09:49→19:58)
[2020-02-25] MEDS: THIAMINE HCL 100 MG TABLET (FP) PO SCH (21:09)
[2020-02-25] MEDS: QUEtiapine FUMARATE 200 MG TABLET PO SCH (21:09)
[2020-02-25] MEDS: MELATONIN 5 MG TABLETS PO SCH (21:10)
[2020-02-26] MEDS ORDERED: METHADONE HCL 40 MG DISPERSABLE TABLET ONE (03:49)
[2020-02-26] MEDS ORDERED: METHADONE HCL 10 MG TABLET ONE (03:49)
[2020-02-26] MEDS: GABAPENTIN 300 MG CAPSULE PO SCH ×3 (06:35→21:25)
[2020-02-26] MEDS: METHADONE 120 MG, METHADONE 10 MG PO SCH (06:35)
[2020-02-26] MEDS: ALBUTEROL SO4 HFA INHALER IH PRN (09:42)
[2020-02-26] MEDS: hydrOXYzine PAMOATE 50 MG CAPSULE (FP) PO PRN ×2 (09:42→15:56)
[2020-02-26] MEDS: NICOTINE 21 MG/24 HOURS TOPICAL PATCH TD SCH (09:42)
[2020-02-26] MEDS: IBUPROFEN 600 MG TABLET (FP) PO PRN ×2 (09:42→15:56)
[2020-02-26] MEDS: PRENATAL VITAMINS W/ FOLIC ACID TABLET (FP) PO SCH (09:42)
[2020-02-26] MEDS: ESCITALOPRAM OXALATE 20 MG TABLET PO SCH (09:42)
[2020-02-26] MEDS: FAMOTIDINE 20 MG TABLET PO SCH ×2 (09:42→21:26)
[2020-02-26] MEDS: NICOTINE POLACRILEX 2 MG GUM BUC PRN ×2 (10:44→21:26)
[2020-02-26] MEDS: QUEtiapine FUMARATE 200 MG TABLET PO SCH (21:25)
[2020-02-26] MEDS: MELATONIN 5 MG TABLETS PO SCH (21:26)
[2020-02-26] MEDS: THIAMINE HCL 100 MG TABLET (FP) PO SCH (21:26)
[2020-02-27] MEDS ORDERED: METHADONE HCL 40 MG DISPERSABLE TABLET ONE (04:12)
[2020-02-27] MEDS ORDERED: METHADONE HCL 10 MG TABLET ONE (04:12)
[2020-02-27] MEDS: METHADONE 120 MG, METHADONE 10 MG PO SCH (06:00)
[2020-02-27] MEDS: GABAPENTIN 300 MG CAPSULE PO SCH ×3 (06:00→21:06)
[2020-02-27] MEDS: NICOTINE POLACRILEX 2 MG GUM BUC PRN ×4 (06:03→21:08)
[2020-02-27] MEDS: IBUPROFEN 600 MG TABLET (FP) PO PRN ×2 (06:03→14:49)
[2020-02-27] MEDS: hydrOXYzine PAMOATE 50 MG CAPSULE (FP) PO PRN ×2 (09:49→14:49)
[2020-02-27] MEDS: NICOTINE 21 MG/24 HOURS TOPICAL PATCH TD SCH (09:49)
[2020-02-27] MEDS: PRENATAL VITAMINS W/ FOLIC ACID TABLET (FP) PO SCH (09:50)
[2020-02-27] MEDS: ESCITALOPRAM OXALATE 20 MG TABLET PO SCH (09:50)
[2020-02-27] MEDS: FAMOTIDINE 20 MG TABLET PO SCH ×2 (09:50→21:06)
[2020-02-27] MEDS: ALBUTEROL SO4 HFA INHALER IH PRN (09:51)
[2020-02-27] MEDS: QUEtiapine FUMARATE 200 MG TABLET PO SCH (21:06)
[2020-02-27] MEDS: THIAMINE HCL 100 MG TABLET (FP) PO SCH (21:06)
[2020-02-27] MEDS: MELATONIN 5 MG TABLETS PO SCH (21:07)
[2020-02-28] MEDS: GABAPENTIN 300 MG CAPSULE PO SCH ×3 (06:50→21:36)
[2020-02-28] MEDS ORDERED: METHADONE HCL 40 MG DISPERSABLE TABLET ONE (06:51)
[2020-02-28] MEDS ORDERED: METHADONE HCL 10 MG TABLET ONE (06:51)
[2020-02-28] MEDS: IBUPROFEN 600 MG TABLET (FP) PO PRN (06:52)
[2020-02-28] MEDS: METHADONE 120 MG, METHADONE 10 MG PO SCH (06:52)
[2020-02-28] MEDS: NICOTINE POLACRILEX 2 MG GUM BUC PRN ×4 (06:52→21:36)
[2020-02-28] MEDS: PRENATAL VITAMINS W/ FOLIC ACID TABLET (FP) PO SCH (09:50)
[2020-02-28] MEDS: NICOTINE 21 MG/24 HOURS TOPICAL PATCH TD SCH (09:51)
[2020-02-28] MEDS: ESCITALOPRAM OXALATE 20 MG TABLET PO SCH (09:51)
[2020-02-28] MEDS: FAMOTIDINE 20 MG TABLET PO SCH ×2 (09:51→21:36)
[2020-02-28] MEDS: hydrOXYzine PAMOATE 50 MG CAPSULE (FP) PO PRN (09:52)
[2020-02-28] MEDS: THIAMINE HCL 100 MG TABLET (FP) PO SCH (21:36)
[2020-02-28] MEDS: QUEtiapine FUMARATE 200 MG TABLET PO SCH (21:36)
[2020-02-28] MEDS: MELATONIN 5 MG TABLETS PO SCH (21:36)
[2020-02-29] MEDS ORDERED: METHADONE HCL 40 MG DISPERSABLE TABLET ONE (04:32)
[2020-02-29] MEDS ORDERED: METHADONE HCL 10 MG TABLET ONE (04:33)
[2020-02-29] MEDS: hydrOXYzine PAMOATE 50 MG CAPSULE (FP) PO PRN ×2 (06:21→09:26)
[2020-02-29] MEDS: GABAPENTIN 300 MG CAPSULE PO SCH ×3 (06:21→21:10)
[2020-02-29] MEDS: METHADONE 120 MG, METHADONE 10 MG PO SCH (06:21)
[2020-02-29] MEDS: NICOTINE POLACRILEX 2 MG GUM BUC PRN ×5 (06:23→21:12)
[2020-02-29] MEDS ORDERED: PT OWN MED DRAWER 7, Y5N ONE (08:44)
[2020-02-29] MEDS: ESCITALOPRAM OXALATE 20 MG TABLET PO SCH (09:26)
[2020-02-29] MEDS: NICOTINE 21 MG/24 HOURS TOPICAL PATCH TD SCH (09:26)
[2020-02-29] MEDS: FAMOTIDINE 20 MG TABLET PO SCH ×2 (09:27→21:11)
[2020-02-29] MEDS: PRENATAL VITAMINS W/ FOLIC ACID TABLET (FP) PO SCH (09:27)
[2020-02-29] MEDS: ALBUTEROL SO4 HFA INHALER IH PRN (09:29)
[2020-02-29] MEDS: QUEtiapine FUMARATE 200 MG TABLET PO SCH (21:10)
[2020-02-29] MEDS: MELATONIN 5 MG TABLETS PO SCH (21:11)
[2020-02-29] MEDS: THIAMINE HCL 100 MG TABLET (FP) PO SCH (21:11)
[2020-03-01] MEDS ORDERED: METHADONE HCL 40 MG DISPERSABLE TABLET ONE (03:41)
[2020-03-01] MEDS ORDERED: METHADONE HCL 10 MG TABLET ONE (03:41)
[2020-03-01] MEDS: GABAPENTIN 300 MG CAPSULE PO SCH ×3 (06:31→21:42)
[2020-03-01] MEDS: METHADONE 120 MG, METHADONE 10 MG PO SCH (06:31)
[2020-03-01] MEDS: NICOTINE POLACRILEX 2 MG GUM BUC PRN ×3 (06:33→21:43)
[2020-03-01] MEDS: FAMOTIDINE 20 MG TABLET PO SCH ×2 (09:31→21:43)
[2020-03-01] MEDS: ESCITALOPRAM OXALATE 20 MG TABLET PO SCH (09:31)
[2020-03-01] MEDS: PRENATAL VITAMINS W/ FOLIC ACID TABLET (FP) PO SCH (09:31)
[2020-03-01] MEDS: NICOTINE 21 MG/24 HOURS TOPICAL PATCH TD SCH (09:32)
[2020-03-01] MEDS: MELATONIN 5 MG TABLETS PO SCH (21:42)
[2020-03-01] MEDS: QUEtiapine FUMARATE 200 MG TABLET PO SCH (21:42)
[2020-03-01] MEDS: THIAMINE HCL 100 MG TABLET (FP) PO SCH (21:43)
[2020-03-02] MEDS ORDERED: METHADONE HCL 40 MG DISPERSABLE TABLET ONE (05:56)
[2020-03-02] MEDS ORDERED: METHADONE HCL 10 MG TABLET ONE (05:57)
[2020-03-02] MEDS: METHADONE 120 MG, METHADONE 10 MG PO SCH (06:27)
[2020-03-02] MEDS: GABAPENTIN 300 MG CAPSULE PO SCH ×3 (06:27→21:11)
[2020-03-02] MEDS: NICOTINE POLACRILEX 2 MG GUM BUC PRN ×4 (06:30→21:13)
[2020-03-02] MEDS: FAMOTIDINE 20 MG TABLET PO SCH ×2 (09:36→21:13)
[2020-03-02] MEDS: PRENATAL VITAMINS W/ FOLIC ACID TABLET (FP) PO SCH (09:36)
[2020-03-02] MEDS: ESCITALOPRAM OXALATE 20 MG TABLET PO SCH (09:36)
[2020-03-02] MEDS: NICOTINE 21 MG/24 HOURS TOPICAL PATCH TD SCH (09:36)
[2020-03-02] MEDS: hydrOXYzine PAMOATE 50 MG CAPSULE (FP) PO PRN (09:36)
[2020-03-02] MEDS: IBUPROFEN 600 MG TABLET (FP) PO PRN (09:37)
[2020-03-02] MEDS: ALBUTEROL SO4 HFA INHALER IH PRN (09:39)
[2020-03-02] MEDS: QUEtiapine FUMARATE 200 MG TABLET PO SCH (21:11)
[2020-03-02] MEDS: MELATONIN 5 MG TABLETS PO SCH (21:11)
[2020-03-02] MEDS: THIAMINE HCL 100 MG TABLET (FP) PO SCH (21:13)
[2020-03-03] MEDS ORDERED: METHADONE HCL 10 MG TABLET ONE (03:20)
[2020-03-03] MEDS ORDERED: METHADONE HCL 40 MG DISPERSABLE TABLET ONE (03:20)
[2020-03-03] MEDS: METHADONE 120 MG, METHADONE 10 MG PO SCH (06:30)
[2020-03-03] MEDS: GABAPENTIN 300 MG CAPSULE PO SCH ×3 (06:30→21:35)
[2020-03-03] MEDS: NICOTINE POLACRILEX 2 MG GUM BUC PRN ×3 (06:31→21:36)
[2020-03-03] MEDS: IBUPROFEN 600 MG TABLET (FP) PO PRN (08:24)
[2020-03-03] MEDS: PRENATAL VITAMINS W/ FOLIC ACID TABLET (FP) PO SCH (09:57)
[2020-03-03] MEDS: NICOTINE 21 MG/24 HOURS TOPICAL PATCH TD SCH (09:57)
[2020-03-03] MEDS: hydrOXYzine PAMOATE 50 MG CAPSULE (FP) PO PRN (09:57)
[2020-03-03] MEDS: ESCITALOPRAM OXALATE 20 MG TABLET PO SCH (09:57)
[2020-03-03] MEDS: FAMOTIDINE 20 MG TABLET PO SCH ×2 (09:57→21:36)
[2020-03-03] MEDS: ALBUTEROL SO4 HFA INHALER IH PRN (09:59)
[2020-03-03] MEDS: MELATONIN 5 MG TABLETS PO SCH (21:35)
[2020-03-03] MEDS: QUEtiapine FUMARATE 200 MG TABLET PO SCH (21:35)
[2020-03-03] MEDS: THIAMINE HCL 100 MG TABLET (FP) PO SCH (21:36)
[2020-03-04] MEDS ORDERED: METHADONE HCL 10 MG TABLET ONE (05:58)
[2020-03-04] MEDS ORDERED: METHADONE HCL 40 MG DISPERSABLE TABLET ONE (05:58)
[2020-03-04] MEDS: NICOTINE POLACRILEX 2 MG GUM BUC PRN ×4 (06:05→21:11)
[2020-03-04] MEDS: GABAPENTIN 300 MG CAPSULE PO SCH ×3 (06:05→21:11)
[2020-03-04] MEDS: METHADONE 120 MG, METHADONE 10 MG PO SCH (06:05)
[2020-03-04] MEDS: IBUPROFEN 600 MG TABLET (FP) PO PRN (06:07)
[2020-03-04] MEDS: hydrOXYzine PAMOATE 50 MG CAPSULE (FP) PO PRN ×2 (06:07→09:53)
[2020-03-04] MEDS: PRENATAL VITAMINS W/ FOLIC ACID TABLET (FP) PO SCH (09:52)
[2020-03-04] MEDS: FAMOTIDINE 20 MG TABLET PO SCH ×2 (09:53→21:11)
[2020-03-04] MEDS: NICOTINE 21 MG/24 HOURS TOPICAL PATCH TD SCH (09:53)
[2020-03-04] MEDS: ESCITALOPRAM OXALATE 20 MG TABLET PO SCH (09:53)
[2020-03-04] MEDS: ALBUTEROL SO4 HFA INHALER IH PRN (09:55)
--- NOTE | 2020-03-04 16:22 | PN ---
[facility] Progress Note Note: Pt is scheduled to be discharged in the morning. Vital Signs - 24 hr 03/03/20 03/04/20 03/04/20 20:23 06:05 13:52 Temperature 97.8 F 98 F Pulse Rate 69 Respiratory 18 Rate Blood Pressure 124/77 O2 Sat by Pulse 96 97 98 Oximetry (%) Alert o x 3 nad pt seen in bed in no resp difficulty and declined any further assessment. medically stable May d/c in a.m if stable pt reports he is in the process of changing primary care provider and don't remember the name of last one he had. d/w pt to f/u with primary care as needed.
[2020-03-04] MEDS: QUEtiapine FUMARATE 200 MG TABLET PO SCH (21:11)
[2020-03-04] MEDS: MELATONIN 5 MG TABLETS PO SCH (21:11)
[2020-03-04] MEDS: THIAMINE HCL 100 MG TABLET (FP) PO SCH (21:11)
[2020-03-05] MEDS: NICOTINE POLACRILEX 2 MG GUM BUC PRN ×2 (03:04→09:43)
[2020-03-05] MEDS ORDERED: METHADONE HCL 40 MG DISPERSABLE TABLET ONE (05:58)
[2020-03-05] MEDS ORDERED: METHADONE HCL 10 MG TABLET ONE (05:58)
[2020-03-05] MEDS: METHADONE 120 MG, METHADONE 10 MG PO SCH (06:50)
[2020-03-05] MEDS: GABAPENTIN 300 MG CAPSULE PO SCH (06:50)
[2020-03-05 07:00] VITALS: BP 129/71; PULSE 74; TEMP 98
--- NOTE | 2020-03-05 08:32 | DS ---
[facility] Rehab Discharge Summary - [facility] Rehab Discharge Summary Admission Date: 02/20/20 Discharge Date: 03/05/20 - History Present History: Alcohol dependence, Cocaine dependence, MMTP, Sedative dependence Pertinent Past History: 34 yo started using percocets and xanax at age 14. Has been in a methadone program for the last 8 months, but still injecting heroin occasionally also injecting cocaine (speedball), wants to stop. HCV pos- has not had treatment diagnosed with anxiety Does not have a PCP - Discharge Physical Exam Vital Signs: Vital Signs Temperature 98 F 03/05/20 06:40 Pulse Rate 74 03/05/20 06:40 Respiratory Rate 18 03/05/20 06:40 Blood Pressure 129/71 03/05/20 06:40 O2 Sat by Pulse Oximetry (%) 99 03/05/20 06:40 Pertinent Admission Physical Exam Findings: Physical General Appearance: No apparent distress HEENTM: Normocephalic, EOMI, PERRLA Respiratory:Lungs Clear Neck: Supple,. 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 He was adherent to his medication regimen and treatment plan, he had no acute or urgent medical problems while in rehab. - Medication Discharge Medications: Ambulatory Orders Buspirone HCl [Buspar -] 15 mg PO BID #60 tablet 02/29/20 Escitalopram Oxalate [Lexapro -] 20 mg PO DAILY #30 tablet 02/29/20 Gabapentin [Neurontin -] 300 mg PO TID #90 capsule 02/29/20 Albuterol Sulfate Inhaler - [Ventolin HFA Inhaler -] 2 inh IH Q4H PRN #1 inh 03/04/20 - Medication-Assisted Treatment (MAT) Medication-Assisted Treatment (MAT): No - Discharge Instructions Diet, activity, other medical instructions: Diet: as tolerated Activity: as tolerated Other medical instructions: Please follow up with aftercare referral. - AMA Did Patient Leave Against Medical Advice: No
[2020-03-05] MEDS: ESCITALOPRAM OXALATE 20 MG TABLET PO SCH (09:39)
[2020-03-05] MEDS: FAMOTIDINE 20 MG TABLET PO SCH (09:40)
[2020-03-05] MEDS: PRENATAL VITAMINS W/ FOLIC ACID TABLET (FP) PO SCH (09:40)
[2020-03-05] MEDS: NICOTINE 21 MG/24 HOURS TOPICAL PATCH TD SCH (09:40)
[2020-03-05] MEDS: hydrOXYzine PAMOATE 50 MG CAPSULE (FP) PO PRN (09:40)
== END 2020-03-05 09:51 | disposition other institution (70) | DRG 772 ==
LOC: YASAS 12:03 → Y3W 12:04
PROVIDERS: ADMIT Allergy & Immunology; ATTEND Allergy & Immunology
PROC: HZ42ZZZ Group Counseling for Substance Abuse Treatment, Cognitive-Behavioral (ICD-10-PCS; principal; 2020-02-20)
DX: F10.20 Alcohol dependence, uncomplicated (principal); F11.20 Opioid dependence, uncomplicated; F14.20 Cocaine dependence, uncomplicated; F13.20 Sedative, hypnotic or anxiolytic dependence, uncomplicated; F41.9 Anxiety disorder, unspecified; F29 Unspecified psychosis not due to a substance or known physiological condition; B18.2 Chronic viral hepatitis C; K21.9 Gastro-esophageal reflux disease without esophagitis; J45.909 Unspecified asthma, uncomplicated; Z56.0 Unemployment, unspecified; Z59.0 Homelessness
CPT/HCPCS: 82962